=== PATIENT | male | born 1960 | race Caucasian/White ===

== ENCOUNTER 2020-05-17 12:28 | Inpatient (IN) | payer MEDICARE, OTHER ==
[2020-05-17] VITALS (28 sets, daily range): BP systolic 60–178; BP diastolic 11–107
[~2020-05-17] VITALS: Ht 172.7 cm; Wt 84.2 kg
--- NOTE | 2020-05-17 12:32 | Emergency Room Report ---
History of Present Illness General Chief Complaint: Dyspnea/Respdistress Source: Patient Present Illness HPI Disclaimer: Please note that this report is being documented using DRAGON technology. This can lead to erroneous entry secondary to incorrect interpretation by the dictating instrument. HPI: 60-year-old male history of ESRD on hemodialysis MWF, recently treated for pneumonia presents for evaluation of shortness of breath. Patient states he was discharged from [facility] 3 days ago after being treated for pneumonia. He does not know what antibiotics he is taking. Completed dialysis yesterday, full treatment according to patient. Reports rapid breathing, shallow breathing, persistent cough. Denies fever. Denies vomiting or diarrhea or skin rash. PMH: ESRD PSH: Shunts Allergies: Penicillin Social Hx: Reviewed Allergies: Uncoded Allergies: PCN (Allergy, Unknown, 05/17/20) COVID-19 Screening Contact w/high risk pt: No Experienced COVID-19 symptoms?: Yes COVID-19 Testing performed FINANCE SPECIALIST: No Review of Systems All Other Systems: negative except mentioned in HPI Physical Exam Vital Signs Date Time Temp Pulse Resp B/P (MAP) Pulse Ox O2 Delivery O2 Flow Rate FiO2 05/17/20 12:19 97.5 95 24 126/87 (100) 95 Nasal Cannula 4.0 General: Awake and alert, mild respiratory distress HEENT: NC/AT. EOMI. Cardiovascular: RRR. S1 and S2 normal. No murmur appreciated Resp: Tachypnea and increased work of breathing. No cough. No wheezing. No crackles. On 4 L nasal cannula. Abdomen: Abdomen is soft, nondistended. Nontender Skin: Intact. No abrasions, laceration or rash over the exposed skin MSK: Normal tone and bulk. Moving all extremities. No obvious deformity. Neuro: Awake and alert. Mentating appropriately. Procedures Critical Care Time Critical Care Time Total critical care time: Approximately 45 minutes Due to a high probability of clinically significant, life threatening deterioration, the patient required the highest level of preparedness to intervene emergently and I personally spent this critical care time directly and personally managing the patient. This critical care time included obtaining a history, examining the patient, pulse oximetry, ordering and reviewing studies, ordering treatments, evaluating response to treatment and updating management plan as needed, frequent reassessment and discussion with other providers as well as arranging for ultimate disposition. This critical to care time was performed to assess and manage the high probability of life-threatening deterioration that could result in multiorgan failure. This critical care time is separate from the separately billable procedures and treating other patients. Central Line Central Line : Consent: Emergent Central Line Lumen: triple Maximal Sterile Barrier Tech: yes cap, yes mask, yes sterile gown, yes sterile gloves, yes large sterile sheet, yes hand hygiene, yes chlorhexidine prep Central Line Postion: femoral (R) US Guided Line?: Yes Vessel visualized with U/S: Right Femoral Vein Ultrasound Findings: Collapsible Vessel, Vessel Patent, Color flow present, Visualize vessel puncture Complications: none Central Line Post Position: sutured, good blood return Attempts: One Patient Tolerated: Well Complications: None Intubation Intubation : Consent: Verbal Intubation Method: orotracheal Tube Size (cm): 7.5 Medications: Etomidate, Rocuronium Breath Sounds after Intubation: equal Post Intubation Xray: Yes Progress/Xray Impression: Satisfactory intubation Attempts: One Patient Tolerated: Well Complications: None Medical Decision Making Diagnostic Impression: Primary Impression: Respiratory distress Additional Impressions: Pneumonia Hyperkalemia Sepsis ER Course 60-year-old male history of ESRD recently treated for pneumonia presents for evaluation of shortness of breath. Patient is on 4 L nasal cannula increased work of breathing mild respiratory distress. Currently saturating 95%. Differential includes was not limited to persistent pneumonia, fluid overload status, pulmonary effusion, empyema, heart failure, sepsis, COVID-19 infection among others. Patient initially placed on BiPAP for respiratory support however he did not tolerate it well and had decreased mental status with increasing work of breathing. He did agree to mechanical intubation. Patient was intubated by me using glide scope technique on first pass without complication. Receiving broad-spectrum antibiotics for pneumonia. COVID-19 swab returned negative. His labs show elevation in troponin, lactic acid and potassium. Treated with calcium, insulin with dextrose. He will require dialysis. Patient will be admitted to the ICU. Dr. Barragan accepting physician. Laboratory Tests Test 05/17/20 12:30 White Blood Count 20.5 K/UL (4.8-10.8) H Red Blood Count 3.25 M/UL (4.70-6.10) L Hemoglobin 10.5 G/DL (14.2-18.0) L Hematocrit 34.3 % (42.0-52.0) L Mean Corpuscular Volume 106 FL (80-99) H Mean Corpuscular Hemoglobin 32.3 PG (27.0-31.0) H Mean Corpuscular Hemoglobin Concent 30.7 G/DL (32.0-36.0) L Red Cell Distribution Width 21.5 % (11.6-14.8) H Platelet Count 526 K/UL (150-450) H Mean Platelet Volume 8.9 FL (6.5-10.1) Neutrophils (%) (Auto) % (45.0-75.0) Lymphocytes (%) (Auto) % (20.0-45.0) Monocytes (%) (Auto) % (1.0-10.0) Eosinophils (%) (Auto) % (0.0-3.0) Basophils (%) (Auto) % (0.0-2.0) Neutrophils % (Manual) Pending Lymphocytes % (Manual) Pending Platelet Estimate Pending Platelet Morphology Pending Prothrombin Time Pending Prothrombin Time INR Pending Activated Partial Thromboplast Time Pending D-Dimer Pending Sodium Level 131 MMOL/L (136-145) L Potassium Level 6.3 MMOL/L (3.5-5.1) *H Chloride Level 90 MMOL/L (98-107) L Carbon Dioxide Level 17 MMOL/L (21-32) L Anion Gap 24 mmol/L (5-15) H Blood Urea Nitrogen 97 mg/dL (7-18) H Creatinine 14.7 MG/DL (0.55-1.30) H Estimated Glomerular Filtration Rate 3.4 mL/min (>60) Glucose Level 214 MG/DL (74-106) H Lactic Acid Level 8.20 mmol/L (0.4-2.0) H Calcium Level 7.8 MG/DL (8.5-10.1) L Phosphorus Level 11.1 MG/DL (2.5-4.9) H Magnesium Level 3.1 MG/DL (1.8-2.4) H Ferritin Pending Total Bilirubin 3.2 MG/DL (0.2-1.0) H Direct Bilirubin 2.7 MG/DL (0.0-0.3) H Aspartate Amino Transferase (AST) 382 U/L (15-37) H Alanine Aminotransferase (ALT) 275 U/L (12-78) H Alkaline Phosphatase 98 U/L (46-116) Lactate Dehydrogenase 558 U/L (81-234) H Total Creatine Kinase 82 U/L (26-308) Creatine Kinase MB 1.3 NG/ML (0.0-3.6) Creatine Kinase MB Relative Index 1.5 Troponin I 0.093 ng/mL (0.000-0.056) C-Reactive Protein, Quantitative 21.7 mg/dL (0.00-0.90) H Pro-B-Type Natriuretic Peptide 66340 pg/mL (0-125) H Total Protein 9.4 G/DL (6.4-8.2) H Albumin 3.2 G/DL (3.4-5.0) L Globulin 6.2 g/dL Albumin/Globulin Ratio 0.5 (1.0-2.7) L Lipase 425 U/L (73-393) H Microbiology Date/Time Source Procedure Growth Status 05/17/20 12:30 Nasopharynx SARS-CoV-2 RdRp Gene Assay - Final Complete EKG Diagnostic Results Troponin ordered: Yes When was troponin ordered?: May 17, 2020 EKG Time: 12:30 Rate: normal Rhythm: other - Indeterminate ST Segments: no acute changes Other Impression Indeterminate rhythm, possibly junctional. Occasional PVCs. No ST segment neptali vation Rhythm Strip Diag. Results Rhythm Strip Time: 12:30 EP Interpretation: yes Rate: 100 Rhythm: other - PVCs Chest X-Ray Diagnostic Results Chest X-Ray Diagnostic Results : Chest X-Ray Ordered: Yes # of Views/Limited/Complete: 1 View Indication: Shortness of Breath EP Interpretation: Yes Interpretation: other - Severe cardiomegaly, right middle lobe infiltrate, endotracheal tube above the araceli Impression: Other - Satisfactory intubation, right-sided pneumonia, cardiomegaly Electronically Signed by: Electronically signed by Dr. Arik Ryder Last Vital Signs Date Time Temp Pulse Resp B/P (MAP) Pulse Ox O2 Delivery O2 Flow Rate FiO2 05/17/20 12:19 97.5 95 24 126/87 (100) 95 Nasal Cannula 4.0 Disposition: ADMITTED INPATIENT Condition: Critical Arik Ryder MD May 17, 2020 12:32
[2020-05-17] MEDS ORDERED: Nitroglycerin 2% oint pkt TOPIC ONE (12:45)
[2020-05-17 12:53] LABS: HEMATOCRIT 34.3 % (42.0-52.0); HEMOGLOBIN 10.5 G/DL (14.2-18.0); MEAN CORPUSCULAR VOLUME 106 FL (80-99); PLATELET COUNT 526 K/UL (150-450); RED BLOOD COUNT 3.25 M/UL (4.70-6.10); RED CELL DISTRIBUTION WIDTH 21.5 % (11.6-14.8); WHITE BLOOD COUNT 20.5 K/UL (4.8-10.8)
[2020-05-17] MEDS ORDERED: Cefepime HCl 1 GM in D5W 55 ML IVPB ONE (13:00)
[2020-05-17] MEDS ORDERED: Vancomycin 1 GM in NS 275 ML IVPB ONE (13:00)
[2020-05-17 13:23] LABS: ALBUMIN 3.2 G/DL (3.4-5.0); ALBUMIN/GLOBULIN RATIO 0.5 (1.0-2.7); BILIRUBIN,TOTAL 3.2 MG/DL (0.2-1.0); CALCIUM 7.8 MG/DL (8.5-10.1); CKMB 1.3 NG/ML (0.0-3.6); CREATININE 14.7 MG/DL (0.55-1.30); PHOSPHORUS 11.1 MG/DL (2.5-4.9)
[2020-05-17 13:26] LABS: POTASSIUM 6.3 MMOL/L (3.5-5.1)
[2020-05-17] MEDS ORDERED: Levophed 4mg/4mL Inj IV ONE ×2 (13:28→13:30)
[2020-05-17 13:29] LABS: BILIRUBIN,DIRECT 2.7 MG/DL (0.0-0.3)
[2020-05-17] MEDS ORDERED: Calcium Gluconate 1gm/10ml vial IVP ONE (13:30)
[2020-05-17] MEDS ORDERED: Sodium Bicarbonate 50ml Carp IV ONE (13:30)
[2020-05-17] MEDS ORDERED: Insulin Human Regular 100units/ml 3ml IV ONE (13:30)
[2020-05-17] MEDS ORDERED: Calcium Gluconate 1gm/10ml vial ONE (13:43)
[2020-05-17] MEDS ORDERED: Sodium Bicarbonate 50ml Carp ONE (13:43)
[2020-05-17] MEDS ORDERED: Insulin Human Regular 100units/ml 3ml ONE (13:47)
--- NOTE | 2020-05-17 14:19 | Diagnostic Imaging Report ---
Indication: Reason For Exam: SOB Technique: Serial AP views of the chest. Comparison: None available Findings: The cardiomediastinal silhouette is enlarged when accounting for projection and technique. There is interstitial edema.. Streaky perihilar airspace opacities are noted. No pneumothorax. No large pleural effusion. Interval placement of endotracheal tube, in appropriate position. IMPRESSION: 1. Interstitial edema with streaky perihilar airspace opacities which could represent combination of atelectasis and edema but pneumonia should be excluded clinically. 2. Interval intubation, with endotracheal tube in appropriate position. 3. Moderate cardiomegaly.
[2020-05-17 14:43] LABS: INR 2.5 (0.9-1.1)
[2020-05-17] MEDS ORDERED: SENSIPAR30 MG ORAL (15:27)
[2020-05-17] MEDS ORDERED: ASPIRIN81 MG ORAL (15:27)
[2020-05-17] MEDS ORDERED: FENOFIBRATE160 MG ORAL (15:27)
[2020-05-17] MEDS ORDERED: COLCHICINE0.6 M1 PO (15:27)
[2020-05-17] MEDS ORDERED: RENVELA2.4 GM ORAL (15:27)
[2020-05-17] MEDS ORDERED: NEPHROVITE1 TAB ORAL (15:27)
[2020-05-17] MEDS ORDERED: MUPIROCIN22 GM TOPIC (15:27)
[2020-05-17] MEDS ORDERED: ATARAX25 MG ORAL (15:27)
[2020-05-17] MEDS ORDERED: ALLOPURINOL100 M1 ORAL (15:27)
[2020-05-17] MEDS ORDERED: VANCOMYCIN1.5 GM/300 IV (15:27)
[2020-05-17] MEDS: Aspirin Baby 81mg ORAL SCH (16:00)
[2020-05-17] MEDS: Norepinephrine Bitartrate 16 MG in Sodium Chloride 484 ML IV SCH ×2 (16:00→16:38)
--- NOTE | 2020-05-17 18:45 | Consultation ---
DATE OF CONSULTATION: 05/17/2020 NEPHROLOGY CONSULTATION CONSULTING PHYSICIAN: Edwin Kate MD REFERRING PHYSICIAN: Humberto Barragan MD REASON FOR CONSULTATION: End-stage renal disease, hyperkalemia. HISTORY OF PRESENT ILLNESS: Patient presented to the emergency room with increasing shortness of breath and is now intubated and sedated. He became hypotensive and is receiving fluids and is on high-dose Levophed. He recently left [facility] with vague records indicating that he had pneumonia MRSA. No further history is available. PHYSICAL EXAMINATION: GENERAL: The patient is in the ICU, sedated, intubated. He was started on dialysis via left arm AV fistula. VITAL SIGNS: Temperature 97.6, pulse 103, respirations 20, blood pressure 67/28. Blood pressure is labile. HEAD, EYES, EARS, NOSE, AND THROAT: Patient is sedated, intubated. Pupils are not reactive at this time. Oral mucosa slightly dry. NECK: No adenopathy. LUNGS: Few rhonchi. HEART: The rhythm is regular and tachycardic. I hear no murmur or rub. ABDOMEN: Soft. Liver and spleen not palpable. There is very mild distention. EXTREMITIES: No edema. There is an AV fistula working well in the left forearm. No evidence of cellulitis. NEUROLOGIC: The patient is sedated. IMPRESSION: 1. End-stage renal disease. 2. Hyperkalemia. 3. Septic shock. 4. History of pneumonia. 5. Lactic acidosis. 6. Troponin elevation. 7. Elevated BNP and likely chronic congestive heart failure. 8. Low serum albumin, likely mild protein-calorie malnutrition. 9. Acute respiratory failure. PLAN: The patient will be dialyzed to control potassium and acidosis. He is being treated with pressors, broad-spectrum antibiotics. Try to get further records. Thank you so much for having me see the patient in consultation. Edwin Kate M.D. DR: JH JOB#: [id number] CC:
[2020-05-17] MEDS ORDERED: Rocuronium Bromide 50mg/5ml Inj IV ONE (19:32)
[2020-05-17] MEDS ORDERED: Etomidate 40mg/20ml Inj IV ONE (19:32)
[2020-05-17] MEDS: Heparin 5000 units/ml inj SUBQ SCH (20:34)
[2020-05-17] MEDS: LORazepam Inj 2mg/ml 1ml IV PRN (21:07)
--- NOTE | 2020-05-17 21:31 | Critical Care Progress Note ---
Assessment/Plan Assessment/Plan acute respiratory failure hypoxemia acidemia renal failure transaminitis leukocytosis anemia possible sepsis tachycardia shock hypotension PLAN pressors as needed care noted IV antibiotics respiratory care Ventilatory management supportive care suction no wean oxygen therapy prognosis critical medications/laboratory data/nursing notes/ICU care reviewed in detail note reviewed and edited care discussed with RN and RT ICU time spent >40 minutes Critical Care - Subjective Interval Events: asked to follow for pulmonary management in ICU on vent acid base reviewed ROS Limited/Unobtainable: Yes Condition: critical Residuals: minimal Critical Care - Objective ET-Tube: 7.5 ET Position: 23 Last 24 Hour Vital Signs Date Time Temp Pulse Resp B/P (MAP) Pulse Ox O2 Delivery O2 Flow Rate FiO2 05/17/20 21:07 118 32 118/83 100 05/17/20 20:00 97.6 112 29 137/107 (117) 100 05/17/20 20:00 100 05/17/20 19:10 199/167 05/17/20 19:05 171/148 05/17/20 19:00 108 22 100 05/17/20 19:00 109 25 130/86 (101) 100 05/17/20 19:00 173/103 05/17/20 19:00 110 28 178/103 (128) 100 05/17/20 18:30 104 21 133/53 (79) 96 05/17/20 18:00 105 23 128/72 (90) 79 05/17/20 18:00 Mechanical Ventilator 05/17/20 18:00 108/84 05/17/20 17:30 97.6 103 20 67/28 (41) 85 05/17/20 17:00 101 22 60/35 (43) 79 05/17/20 17:00 69/21 05/17/20 16:45 99 21 100 05/17/20 16:30 103 24 72/21 (38) 81 05/17/20 16:06 97.7 98 21 76/11 (32) 05/17/20 16:00 74/38 05/17/20 16:00 76/11 05/17/20 16:00 98 20 76/11 (32) 72 05/17/20 16:00 Mechanical Ventilator 05/17/20 15:52 101 20 100 05/17/20 15:45 97 20 73/39 (50) 76 05/17/20 15:38 Mechanical Ventilator 10/20/20 15:38 100 05/17/20 15:30 97 20 81/29 (46) 78 05/17/20 15:15 95 20 78/32 (47) 75 05/17/20 15:00 95 20 65/28 (40) 72 05/17/20 15:00 65/28 05/17/20 14:30 97.6 105 20 71/35 (47) 71 05/17/20 14:30 87/29 05/17/20 14:30 100 05/17/20 14:09 98.0 105 20 132/83 99 Mechanical Ventilator 4.0 100 05/17/20 14:03 97.9 100 20 123/73 100 Mechanical Ventilator 100 05/17/20 13:54 100 05/17/20 13:48 98 14 Mechanical Ventilator 05/17/20 13:42 98 14 100 05/17/20 13:38 89/49 05/17/20 13:38 89/49 05/17/20 12:48 126/87 05/17/20 12:40 95 24 Nasal Cannula 4.0 05/17/20 12:40 97.5 94 24 126/87 95 Nasal Cannula 4.0 05/17/20 12:19 97.5 95 24 126/87 (100) 95 Nasal Cannula 4.0 Labs: Labs Test 05/17/20 12:30 05/17/20 14:05 05/17/20 16:34 05/17/20 17:05 White Blood Count 20.5 K/UL (4.8-10.8) Red Blood Count 3.25 M/UL (4.70-6.10) Hemoglobin 10.5 G/DL (14.2-18.0) Hematocrit 34.3 % (42.0-52.0) Mean Corpuscular Volume 106 FL (80-99) Mean Corpuscular Hemoglobin 32.3 PG (27.0-31.0) Mean Corpuscular Hemoglobin Concent 30.7 G/DL (32.0-36.0) Red Cell Distribution Width 21.5 % (11.6-14.8) Platelet Count 526 K/UL (150-450) Mean Platelet Volume 8.9 FL (6.5-10.1) Neutrophils (%) (Auto) % (45.0-75.0) Lymphocytes (%) (Auto) % (20.0-45.0) Monocytes (%) (Auto) % (1.0-10.0) Eosinophils (%) (Auto) % (0.0-3.0) Basophils (%) (Auto) % (0.0-2.0) Differential Total Cells Counted 100 Neutrophils % (Manual) 81 % (45-75) Lymphocytes % (Manual) 8 % (20-45) Monocytes % (Manual) 9 % (1-10) Eosinophils % (Manual) 0 % (0-3) Basophils % (Manual) 1 % (0-2) Band Neutrophils 1 % (0-8) Nucleated Red Blood Cells 3 /100 WBC Platelet Estimate Increased Platelet Morphology Normal Hypochromasia 1+ Anisocytosis 2+ Sodium Level 131 MMOL/L (136-145) Potassium Level 6.3 MMOL/L (3.5-5.1) Chloride Level 90 MMOL/L (98-107) Carbon Dioxide Level 17 MMOL/L (21-32) Anion Gap 24 mmol/L (5-15) Blood Urea Nitrogen 97 mg/dL (7-18) Creatinine 14.7 MG/DL (0.55-1.30) Estimat Glomerular Filtration Rate 3.4 mL/min (>60) Glucose Level 214 MG/DL (74-106) Lactic Acid Level 8.20 mmol/L (0.4-2.0) 5.50 mmol/L (0.66-2.22) Calcium Level 7.8 MG/DL (8.5-10.1) Phosphorus Level 11.1 MG/DL (2.5-4.9) Magnesium Level 3.1 MG/DL (1.8-2.4) Ferritin 1843 NG/ML (8-388) Total Bilirubin 3.2 MG/DL (0.2-1.0) Direct Bilirubin 2.7 MG/DL (0.0-0.3) Aspartate Amino Transf (AST/SGOT) 382 U/L (15-37) Alanine Aminotransferase (ALT/SGPT) 275 U/L (12-78) Alkaline Phosphatase 98 U/L (46-116) Lactate Dehydrogenase 558 U/L (81-234) Total Creatine Kinase 82 U/L (26-308) Creatine Kinase MB 1.3 NG/ML (0.0-3.6) Creatine Kinase MB Relative Index 1.5 Troponin I 0.093 ng/mL (0.000-0.056) C-Reactive Protein, Quantitative 21.7 mg/dL (0.00-0.90) Pro-B-Type Natriuretic Peptide 24834 pg/mL (0-125) Total Protein 9.4 G/DL (6.4-8.2) Albumin 3.2 G/DL (3.4-5.0) Globulin 6.2 g/dL Albumin/Globulin Ratio 0.5 (1.0-2.7) Lipase 425 U/L (73-393) Prothrombin Time 25.3 SEC (9.30-11.50) Prothromb Time International Ratio 2.5 (0.9-1.1) Activated Partial Thromboplast Time 32 SEC (23-33) D-Dimer 4.63 mg/L FEU (0.00-0.49) Arterial Blood pH 7.399 (7.350-7.450) Arterial Blood Partial Pressure CO2 32.5 mmHg (35.0-45.0) Arterial Blood Partial Pressure O2 239.1 mmHg (75.0-100.0) Arterial Blood HCO3 19.6 mmol/L (22.0-26.0) Arterial Blood Oxygen Saturation 99.2 % (95-100) Arterial Blood Base Excess -4.5 (-2-2) Hood Test N/a Test 05/17/20 20:00 Lactic Acid Level 1.50 mmol/L (0.4-2.0) Objective: WDWN poorly responsive ETT in place reduced breath sounds bilaterally without rhonchi or wheeze [id number] tachy without MRG NABS nontender no CCE obtunded in bed on vent Micro: Microbiology Date/Time Source Procedure Growth Status 05/17/20 12:30 Nasopharynx SARS-CoV-2 RdRp Gene Assay - Final Complete Accucheck: 190 Gregory Jimenez MD May 17, 2020 21:31
[2020-05-18] VITALS (24 sets, daily range): BP systolic 53–118; BP diastolic 14–94
[2020-05-18] MEDS: LORazepam Inj 2mg/ml 1ml IV PRN ×2 (01:11→07:05)
[2020-05-18] MEDS: Norepinephrine Bitartrate 16 MG in Sodium Chloride 484 ML IV SCH (02:39)
--- NOTE | 2020-05-18 03:00 | Consultation ---
DATE OF CONSULTATION: 05/17/2020 CARDIOLOGY CONSULTATION CONSULTING PHYSICIAN: Humberto Barragan M.D. REQUESTING PHYSICIAN: Marcelino Fenton M.D. REASON: Shock. HISTORY OF PRESENT ILLNESS: This 60-year-old male with end-stage renal disease and recent hospitalization for pneumonia, presented to the emergency room with shortness of breath. He has been home 3 days following his last hospitalization and has been on oral antimicrobials. He notes worsening congestion and difficulty breathing and persistent cough. In the emergency room, his condition deteriorated and he required intubation and mechanical ventilation. Subsequently, he became hypotensive. Fluid challenges were initiated. I have been asked to assist with cardiovascular care. The patient had central venous access placed in the emergency room with a triple lumen catheter placed to his right femoral region. PAST MEDICAL HISTORY: End-stage renal disease, AV fistula, hypertension. ALLERGIES: Penicillin. MEDICATIONS: Not available. FAMILY HISTORY: Not known. SOCIAL HISTORY: Not obtainable presently. PHYSICAL EXAMINATION: VITAL SIGNS: Blood pressure 126/87, pulse 95, respirations 24, afebrile on presentation. Blood pressure now is less than 90 systolic. GENERAL: Orally intubated. LUNGS: Bilateral rhonchi. CARDIAC: Regular rhythm and rate. Normal S1, S2. ABDOMEN: Soft, nontender. EXTREMITIES: With trace edema. LABORATORY AND DIAGNOSTIC DATA: EKG reveals junctional rhythm with artifact obscuring exam, occasional PVCs, nonspecific ST-T changes. Chest x-ray with cardiomegaly, right middle lobe infiltrate. COVID swab is negative. Natriuretic peptide is almost 13,000. Magnesium 3.1. Sodium 131, potassium 6.3, bicarb 17, BUN 97, and creatinine 14.7. Troponin elevated at 0.093, with lactic acid 8.2. White count 20.5, hemoglobin 10.5. IMPRESSION: 1. Healthcare-associated pneumonia. 2. Respiratory failure with hypoxia. 3. Sepsis with shock. 4. Acute myocardial ischemia and possible non-ST elevation infarction. 5. Acute on chronic systolic and diastolic congestive heart failure. 6. Lactic acidosis. 7. End-stage renal disease. 8. Condition critical, prognosis guarded. 9. Hyperkalemia with associated conduction system impairments of the heart. PLAN: 1. Emergent hemodialysis with ultrafiltration. 2. Kayexalate at this time until dialysis can be performed. 3. Antimicrobials. 4. Ventilator support. 5. Pressor support. 6. DVT and stress ulcer prophylaxes. Humberto Barragan M.D. DR: TC JOB#: [id number] CC:
[2020-05-18 05:53] LABS: HEMATOCRIT 30.8 % (42.0-52.0); HEMOGLOBIN 9.6 G/DL (14.2-18.0); MEAN CORPUSCULAR VOLUME 107 FL (80-99); PLATELET COUNT 503 K/UL (150-450); RED BLOOD COUNT 2.88 M/UL (4.70-6.10); RED CELL DISTRIBUTION WIDTH 20.8 % (11.6-14.8); WHITE BLOOD COUNT 21.9 K/UL (4.8-10.8)
[2020-05-18] MEDS ORDERED: Heparin Sod 1000 units/ml 10ml IV PRN (06:00)
[2020-05-18 06:20] LABS: ALBUMIN 3.2 G/DL (3.4-5.0); ALBUMIN/GLOBULIN RATIO 0.8 (1.0-2.7); CALCIUM 8.3 MG/DL (8.5-10.1); CREATININE 8.7 MG/DL (0.55-1.30)
[2020-05-18 06:41] LABS: POTASSIUM 4.3 MMOL/L (3.5-5.1)
[2020-05-18 06:45] LABS: BILIRUBIN,DIRECT 3.1 MG/DL (0.0-0.3)
[2020-05-18] MEDS ORDERED: Phenylephrine 100 MG in NS 240 ML IV SCH (08:15)
[2020-05-18] MEDS: Heparin 5000 units/ml inj SUBQ SCH (09:00)
[2020-05-18] MEDS ORDERED: Pantoprazole Inj IVP SCH (09:00)
[2020-05-18] MEDS: Vancomycin 750mg/NS 275ml IVPB SCH ×4 (09:00→09:26)
[2020-05-18] MEDS: Aspirin Baby 81mg ORAL SCH (09:00)
[2020-05-18] MEDS ORDERED: Sodium Bicarbonate 50ml Carp IV SCH (09:15)
--- NOTE | 2020-05-18 09:40 | Cardiology Progress Note ---
Subjective DATE OF SERVICE: May 18, 2020 Condition has deteriorated further; patient remains critical and guarded. Now hypotensive on max dose pressors. Remains orally intubated and mechanicaly ventilated. Labs reviewed ICU logs discussed with the nursing staff. Objective Last 24 Hour Vital Signs Date Time Temp Pulse Resp B/P (MAP) Pulse Ox O2 Delivery O2 Flow Rate FiO2 05/18/20 09:25 108 44/23 05/18/20 09:13 100 05/18/20 09:01 120 30 100 05/18/20 08:00 123 35 71/46 (54) 89 05/18/20 08:00 71/46 05/18/20 08:00 Mechanical Ventilator Mechanical Ventilator Mechanical Ventilator 05/18/20 07:46 100 05/18/20 07:35 113 37 73/51 91 05/18/20 07:30 127 32 106/57 (73) 92 05/18/20 07:05 132 51 110/82 85 05/18/20 07:00 39 98/85 (89) 94 05/18/20 07:00 98/85 05/18/20 06:56 121 31 50 05/18/20 06:30 130 39 05/18/20 06:30 132 48 110/82 (91) 85 05/18/20 06:00 87/52 05/18/20 06:00 107 31 87/52 (64) 99 05/18/20 05:30 109 28 101/58 (72) 98 05/18/20 05:00 104 23 88/46 (60) 96 05/18/20 05:00 101/58 05/18/20 04:37 106 32 50 05/18/20 04:30 105 26 92/54 (67) 98 05/18/20 04:26 50 05/18/20 04:00 Mechanical Ventilator Mechanical Ventilator Mechanical Ventilator 05/18/20 04:00 98.0 105 24 99/69 (79) 100 05/18/20 04:00 99/69 05/18/20 04:00 60 05/18/20 03:30 117 25 100/53 (69) 100 05/18/20 03:17 116 05/18/20 03:00 117 30 97/56 (70) 98 05/18/20 03:00 97/56 05/18/20 02:52 114 32 60 05/18/20 02:51 60 05/18/20 02:39 101/62 05/18/20 02:30 114 22 91/51 (64) 100 05/18/20 02:00 116 25 101/62 (75) 100 05/18/20 02:00 101/62 05/18/20 01:41 116 25 101/62 100 05/18/20 01:30 112 22 91/36 (54) 100 05/18/20 01:11 116 32 104/62 100 05/18/20 01:00 116 25 104/62 (76) 96 05/18/20 01:00 104/62 05/18/20 00:50 114 32 80 05/18/20 00:49 70 05/18/20 00:30 114 31 93/78 (83) 100 05/18/20 00:00 118/55 05/18/20 00:00 98.0 114 28 118/55 (76) 99 05/18/20 00:00 Mechanical Ventilator Mechanical Ventilator Mechanical Ventilator 05/17/20 23:30 109 22 97/70 (79) 100 05/17/20 23:15 108 05/17/20 23:11 88 24 80 05/17/20 23:05 80 05/17/20 23:00 109 23 98/50 (66) 100 05/17/20 23:00 98/50 05/17/20 22:30 109 24 99/49 (66) 100 05/17/20 22:10 106 22 103/55 (71) 98 05/17/20 22:10 103/55 05/17/20 22:00 90 05/17/20 22:00 94/35 05/17/20 22:00 107 23 94/35 (54) 100 05/17/20 21:55 89/35 05/17/20 21:55 109 24 89/35 (53) 99 05/17/20 21:50 110 23 81/45 (57) 100 05/17/20 21:50 81/45 05/17/20 21:45 80/36 05/17/20 21:45 112 25 80/36 (51) 100 05/17/20 21:40 115 25 69/50 (56) 100 05/17/20 21:40 69/50 05/17/20 21:37 115 24 104/57 100 05/17/20 21:30 115 32 90/50 (63) 100 20 21:10 118/83 20 21:07 118 32 118/83 100 20 21:05 106 21 90 05/17/20 21:00 113 36 118/83 (95) 92 05/17/20 20:30 109 29 113/85 (94) 100 05/17/20 20:10 104/69 05/17/20 20:00 Mechanical Ventilator Mechanical Ventilator Mechanical Ventilator 05/17/20 20:00 97.6 112 29 137/107 (117) 100 05/17/20 20:00 100 05/17/20 19:42 110 05/17/20 19:10 199/167 05/17/20 19:05 171/148 05/17/20 19:00 108 22 100 05/17/20 19:00 109 25 130/86 (101) 100 05/17/20 19:00 173/103 05/17/20 19:00 110 28 178/103 (128) 100 05/17/20 18:30 104 21 133/53 (79) 96 05/17/20 18:00 105 23 128/72 (90) 79 05/17/20 18:00 Mechanical Ventilator 05/17/20 18:00 108/84 05/17/20 17:30 97.6 103 20 67/28 (41) 85 05/17/20 17:00 101 22 60/35 (43) 79 05/17/20 17:00 69/21 05/17/20 16:45 99 21 100 05/17/20 16:30 103 24 72/21 (38) 81 05/17/20 16:06 97.7 98 21 76/11 (32) 05/17/20 16:00 74/38 20 16:00 76/11 05/17/20 16:00 98 20 76/11 (32) 72 05/17/20 16:00 Mechanical Ventilator 05/17/20 15:52 101 20 100 05/17/20 15:45 97 20 73/39 (50) 76 20 15:38 Mechanical Ventilator 05/17/20 15:38 100 05/17/20 15:30 97 20 81/29 (46) 78 05/17/20 15:15 95 20 78/32 (47) 75 10/20/20 15:00 95 20 65/28 (40) 72 05/17/20 15:00 65/28 05/17/20 14:30 97.6 105 20 71/35 (47) 71 05/17/20 14:30 87/29 05/17/20 14:30 100 05/17/20 14:09 98.0 105 20 132/83 99 Mechanical Ventilator 4.0 100 05/17/20 14:03 97.9 100 20 123/73 100 Mechanical Ventilator 100 05/17/20 13:54 100 05/17/20 13:48 98 14 Mechanical Ventilator 05/17/20 13:42 98 14 100 05/17/20 13:38 89/49 05/17/20 13:38 89/49 05/17/20 12:48 126/87 05/17/20 12:40 95 24 Nasal Cannula 4.0 05/17/20 12:40 97.5 94 24 126/87 95 Nasal Cannula 4.0 05/17/20 12:19 97.5 95 24 126/87 (100) 95 Nasal Cannula 4.0 HEENT: Orally intubated RHYTHM: ST LUNGS: bilat. rhonchi and rales CARDIAC: regular rhythm, normal S1 and S2, tachycardia ABDOMEN: decreased bowel sounds, distended EXTREMITIES: no calf tenderness, slow capillary refill, trace edema, other - sedated Laboratory Tests Test 05/17/20 12:30 05/17/20 14:05 05/17/20 16:34 05/17/20 17:05 White Blood Count 20.5 K/UL (4.8-10.8) H Red Blood Count 3.25 M/UL (4.70-6.10) L Hemoglobin 10.5 G/DL (14.2-18.0) L Hematocrit 34.3 % (42.0-52.0) L Mean Corpuscular Volume 106 FL (80-99) H Mean Corpuscular Hemoglobin 32.3 PG (27.0-31.0) H Mean Corpuscular Hemoglobin Concent 30.7 G/DL (32.0-36.0) L Red Cell Distribution Width 21.5 % (11.6-14.8) H Platelet Count 526 K/UL (150-450) H Mean Platelet Volume 8.9 FL (6.5-10.1) Neutrophils (%) (Auto) % (45.0-75.0) Lymphocytes (%) (Auto) % (20.0-45.0) Monocytes (%) (Auto) % (1.0-10.0) Eosinophils (%) (Auto) % (0.0-3.0) Basophils (%) (Auto) % (0.0-2.0) Differential Total Cells Counted 100 Neutrophils % (Manual) 81 % (45-75) H Lymphocytes % (Manual) 8 % (20-45) L Monocytes % (Manual) 9 % (1-10) Eosinophils % (Manual) 0 % (0-3) Basophils % (Manual) 1 % (0-2) Band Neutrophils 1 % (0-8) Nucleated Red Blood Cells 3 /100 WBC Platelet Estimate Increased H Platelet Morphology Normal Hypochromasia 1+ Anisocytosis 2+ Sodium Level 131 MMOL/L (136-145) L Potassium Level 6.3 MMOL/L (3.5-5.1) *H Chloride Level 90 MMOL/L (98-107) L Carbon Dioxide Level 17 MMOL/L (21-32) L Anion Gap 24 mmol/L (5-15) H Blood Urea Nitrogen 97 mg/dL (7-18) H Creatinine 14.7 MG/DL (0.55-1.30) H Estimat Glomerular Filtration Rate 3.4 mL/min (>60) Glucose Level 214 MG/DL (74-106) H Lactic Acid Level 8.20 mmol/L (0.4-2.0) H 5.50 mmol/L (0.66-2.22) H Calcium Level 7.8 MG/DL (8.5-10.1) L Phosphorus Level 11.1 MG/DL (2.5-4.9) H Magnesium Level 3.1 MG/DL (1.8-2.4) H Ferritin 1843 NG/ML (8-388) H Total Bilirubin 3.2 MG/DL (0.2-1.0) H Direct Bilirubin 2.7 MG/DL (0.0-0.3) H Aspartate Amino Transf (AST/SGOT) 382 U/L (15-37) H Alanine Aminotransferase (ALT/SGPT) 275 U/L (12-78) H Alkaline Phosphatase 98 U/L (46-116) Lactate Dehydrogenase 558 U/L (81-234) H Total Creatine Kinase 82 U/L (26-308) Creatine Kinase MB 1.3 NG/ML (0.0-3.6) Creatine Kinase MB Relative Index 1.5 Troponin I 0.093 ng/mL (0.000-0.056) C-Reactive Protein, Quantitative 21.7 mg/dL (0.00-0.90) H Pro-B-Type Natriuretic Peptide 78661 pg/mL (0-125) H Total Protein 9.4 G/DL (6.4-8.2) H Albumin 3.2 G/DL (3.4-5.0) L Globulin 6.2 g/dL Albumin/Globulin Ratio 0.5 (1.0-2.7) L Lipase 425 U/L (73-393) H Prothrombin Time 25.3 SEC (9.30-11.50) H Prothromb Time International Ratio 2.5 (0.9-1.1) H Activated Partial Thromboplast Time 32 SEC (23-33) D-Dimer 4.63 mg/L FEU (0.00-0.49) H Arterial Blood pH 7.399 (7.350-7.450) Arterial Blood Partial Pressure CO2 32.5 mmHg (35.0-45.0) L Arterial Blood Partial Pressure O2 239.1 mmHg (75.0-100.0) H Arterial Blood HCO3 19.6 mmol/L (22.0-26.0) L Arterial Blood Oxygen Saturation 99.2 % (95-100) Arterial Blood Base Excess -4.5 (-2-2) L Hood Test N/a Hepatitis B Surface Antigen Pending Test 05/17/20 20:00 05/18/20 04:00 05/18/20 08:20 Lactic Acid Level 1.50 mmol/L (0.4-2.0) White Blood Count 21.9 K/UL (4.8-10.8) H Red Blood Count 2.88 M/UL (4.70-6.10) L Hemoglobin 9.6 G/DL (14.2-18.0) L Hematocrit 30.8 % (42.0-52.0) L Mean Corpuscular Volume 107 FL (80-99) H Mean Corpuscular Hemoglobin 33.1 PG (27.0-31.0) H Mean Corpuscular Hemoglobin Concent 31.0 G/DL (32.0-36.0) L Red Cell Distribution Width 20.8 % (11.6-14.8) H Platelet Count 503 K/UL (150-450) H Mean Platelet Volume 8.2 FL (6.5-10.1) Neutrophils (%) (Auto) % (45.0-75.0) Lymphocytes (%) (Auto) % (20.0-45.0) Monocytes (%) (Auto) % (1.0-10.0) Eosinophils (%) (Auto) % (0.0-3.0) Basophils (%) (Auto) % (0.0-2.0) Differential Total Cells Counted 100 Neutrophils % (Manual) 79 % (45-75) H Lymphocytes % (Manual) 10 % (20-45) L Monocytes % (Manual) 4 % (1-10) Eosinophils % (Manual) 1 % (0-3) Basophils % (Manual) 0 % (0-2) Myelocytes % 1 % (0-0) H Band Neutrophils 5 % (0-8) Nucleated Red Blood Cells 6 /100 WBC Platelet Estimate Increased H Platelet Morphology Normal Polychromasia Hypochromasia 1+ Anisocytosis 2+ Macrocytosis 2+ Sodium Level 140 MMOL/L (136-145) Potassium Level 4.3 MMOL/L (3.5-5.1) Chloride Level 97 MMOL/L (98-107) L Carbon Dioxide Level 21 MMOL/L (21-32) Anion Gap 23 mmol/L (5-15) H Blood Urea Nitrogen 45 mg/dL (7-18) H Creatinine 8.7 MG/DL (0.55-1.30) H Estimat Glomerular Filtration Rate 6.3 mL/min (>60) Glucose Level 122 MG/DL (74-106) H Calcium Level 8.3 MG/DL (8.5-10.1) L Total Bilirubin 4.0 MG/DL (0.2-1.0) H Direct Bilirubin 3.1 MG/DL (0.0-0.3) H Aspartate Amino Transf (AST/SGOT) 419 U/L (15-37) H Alanine Aminotransferase (ALT/SGPT) 249 U/L (12-78) H Alkaline Phosphatase 71 U/L (46-116) Troponin I 0.124 ng/mL (0.000-0.056) Total Protein 7.1 G/DL (6.4-8.2) Albumin 3.2 G/DL (3.4-5.0) L Globulin 3.9 g/dL Albumin/Globulin Ratio 0.8 (1.0-2.7) L Thyroid Stimulating Hormone (TSH) 0.328 uiU/mL (0.358-3.740) Random Vancomycin Level 19.4 ug/mL Arterial Blood pH 7.229 (7.350-7.450) Arterial Blood Partial Pressure CO2 27.0 mmHg (35.0-45.0) L Arterial Blood Partial Pressure O2 64.3 mmHg (75.0-100.0) L Arterial Blood HCO3 11.0 mmol/L (22.0-26.0) *L Arterial Blood Oxygen Saturation 84.2 % (95-100) *L Arterial Blood Base Excess -15.1 (-2-2) *L Hood Test Positive Microbiology Date/Time Source Procedure Growth Status 05/17/20 12:30 Nasopharynx SARS-CoV-2 RdRp Gene Assay - Final Complete Assessment/Plan Assessment/Plan Shock Sepsis Acute myocardial infarction Respiratory failure Respiratory acidosis Lactic acidosis Ac/chr diastolic/systolic CHF ESRD Pressors Fluid challenge Abx HD/UF Vent support Brother present -aware of gravity of condition Humberto Barragan MD May 18, 2020 09:40
[2020-05-18] MEDS ORDERED: Hydrocortisone 100mg Inj IV SCH (10:00)
--- NOTE | 2020-05-18 11:21 | Critical Care Progress Note ---
Assessment/Plan Assessment/Plan acute respiratory failure hypoxemia acidemia renal failure transaminitis leukocytosis anemia possible sepsis tachycardia shock hypotension PLAN pressors as needed care noted IV antibiotics respiratory care Ventilatory management/ adjust RR taper oxygen as able supportive care suction no wean oxygen therapy prognosis critical remains hypotensive medications/laboratory data/nursing notes/ICU care reviewed in detail note reviewed and edited care discussed with RN and RT ICU time spent >40 minutes Critical Care - Subjective Interval Events: hypotensive care noted agitated increased to 100% Condition: critical EKG Rhythm: Sinus Tachycardia I&O: Intake and Output 05/17/20 05/18/20 19:00 07:00 Intake Total 941.875 ml 583.1250 ml Output Total 0 ml 0 ml Balance 941.875 ml 583.1250 ml Intake Oral 0 ml IV Total 941.875 ml 583.1250 ml Output Urine Total 0 ml Hemodialysis UF 0 ml Critical Care - Objective ET-Tube: 7.5 ET Position: 23 Last 24 Hour Vital Signs Date Time Temp Pulse Resp B/P (MAP) Pulse Ox O2 Delivery O2 Flow Rate FiO2 05/18/20 11:00 127 38 100 05/18/20 10:30 117 32 71/25 (40) 74 05/18/20 10:00 114 33 61/37 (45) 79 05/18/20 09:30 108 32 53/32 (39) 93 05/18/20 09:25 108 44/23 05/18/20 09:13 100 05/18/20 09:01 120 30 100 05/18/20 09:00 111 31 68/42 (51) 93 05/18/20 08:30 116 33 57/22 (34) 88 05/18/20 08:00 98.6 123 35 71/46 (54) 89 05/18/20 08:00 121 05/18/20 08:00 71/46 05/18/20 08:00 Mechanical Ventilator Mechanical Ventilator Mechanical Ventilator 05/18/20 07:46 100 05/18/20 07:35 113 37 73/51 91 05/18/20 07:30 127 32 106/57 (73) 92 05/18/20 07:05 132 51 110/82 85 05/18/20 07:00 39 98/85 (89) 94 05/18/20 07:00 98/85 05/18/20 06:56 121 31 50 10/21/20 06:30 130 39 05/18/20 06:30 132 48 110/82 (91) 85 05/18/20 06:00 87/52 05/18/20 06:00 107 31 87/52 (64) 99 05/18/20 05:30 109 28 101/58 (72) 98 05/18/20 05:00 104 23 88/46 (60) 96 05/18/20 05:00 101/58 05/18/20 04:37 106 32 50 05/18/20 04:30 105 26 92/54 (67) 98 05/18/20 04:26 50 05/18/20 04:00 Mechanical Ventilator Mechanical Ventilator Mechanical Ventilator 05/18/20 04:00 98.0 105 24 99/69 (79) 100 05/18/20 04:00 99/69 05/18/20 04:00 60 05/18/20 03:30 117 25 100/53 (69) 100 05/18/20 03:17 116 05/18/20 03:00 117 30 97/56 (70) 98 05/18/20 03:00 97/56 05/18/20 02:52 114 32 60 05/18/20 02:51 60 05/18/20 02:39 101/62 05/18/20 02:30 114 22 91/51 (64) 100 05/18/20 02:00 116 25 101/62 (75) 100 05/18/20 02:00 101/62 05/18/20 01:41 116 25 101/62 100 05/18/20 01:30 112 22 91/36 (54) 100 05/18/20 01:11 116 32 104/62 100 05/18/20 01:00 116 25 104/62 (76) 96 05/18/20 01:00 104/62 05/18/20 00:50 114 32 80 05/18/20 00:49 70 05/18/20 00:30 114 31 93/78 (83) 100 05/18/20 00:00 118/55 05/18/20 00:00 98.0 114 28 118/55 (76) 99 05/18/20 00:00 Mechanical Ventilator Mechanical Ventilator Mechanical Ventilator 05/17/20 23:30 109 22 97/70 (79) 100 05/17/20 23:15 108 05/17/20 23:11 88 24 80 05/17/20 23:05 80 05/17/20 23:00 109 23 98/50 (66) 100 20 23:00 98/50 20 22:30 109 24 99/49 (66) 100 05/17/20 22:10 106 22 103/55 (71) 98 05/17/20 22:10 103/55 05/17/20 22:00 90 05/17/20 22:00 94/35 1020 22:00 107 23 94/35 (54) 100 20 21:55 89/35 20 21:55 109 24 89/35 (53) 99 05/17/20 21:50 110 23 81/45 (57) 100 05/17/20 21:50 81/45 05/17/20 21:45 80/36 20 21:45 112 25 80/36 (51) 100 05/17/20 21:40 115 25 69/50 (56) 100 20 21:40 69/50 05/17/20 21:37 115 24 104/57 100 05/17/20 21:30 115 32 90/50 (63) 100 05/17/20 21:10 118/83 05/17/20 21:07 118 32 118/83 100 05/17/20 21:05 106 21 90 05/17/20 21:00 113 36 118/83 (95) 92 05/17/20 20:30 109 29 113/85 (94) 100 05/17/20 20:10 104/69 20 20:00 Mechanical Ventilator Mechanical Ventilator Mechanical Ventilator 05/17/20 20:00 97.6 112 29 137/107 (117) 100 20 20:00 100 20 19:42 110 20 19:10 199/167 05/17/20 19:05 171/148 05/17/20 19:00 108 22 100 05/17/20 19:00 109 25 130/86 (101) 100 20 19:00 173/103 05/17/20 19:00 110 28 178/103 (128) 100 05/17/20 18:30 104 21 133/53 (79) 96 05/17/20 18:00 105 23 128/72 (90) 79 05/17/20 18:00 Mechanical Ventilator 05/17/20 18:00 108/84 05/17/20 17:30 97.6 103 20 67/28 (41) 85 05/17/20 17:00 101 22 60/35 (43) 79 05/17/20 17:00 69/21 05/17/20 16:45 99 21 100 05/17/20 16:30 103 24 72/21 (38) 81 05/17/20 16:06 97.7 98 21 76/11 (32) 05/17/20 16:00 74/38 05/17/20 16:00 76/11 05/17/20 16:00 98 20 76/11 (32) 72 05/17/20 16:00 Mechanical Ventilator 05/17/20 15:52 101 20 100 05/17/20 15:45 97 20 73/39 (50) 76 05/17/20 15:38 Mechanical Ventilator 05/17/20 15:38 100 05/17/20 15:30 97 20 81/29 (46) 78 05/17/20 15:15 95 20 78/32 (47) 75 05/17/20 15:00 95 20 65/28 (40) 72 05/17/20 15:00 65/28 05/17/20 14:30 97.6 105 20 71/35 (47) 71 05/17/20 14:30 87/29 05/17/20 14:30 100 05/17/20 14:09 98.0 105 20 132/83 99 Mechanical Ventilator 4.0 100 05/17/20 14:03 97.9 100 20 123/73 100 Mechanical Ventilator 100 05/17/20 13:54 100 05/17/20 13:48 98 14 Mechanical Ventilator 05/17/20 13:42 98 14 100 05/17/20 13:38 89/49 05/17/20 13:38 89/49 05/17/20 12:48 126/87 05/17/20 12:40 95 24 Nasal Cannula 4.0 05/17/20 12:40 97.5 94 24 126/87 95 Nasal Cannula 4.0 05/17/20 12:19 97.5 95 24 126/87 (100) 95 Nasal Cannula 4.0 Labs: Labs Test 05/17/20 12:30 05/17/20 14:05 05/17/20 16:34 05/17/20 17:05 White Blood Count 20.5 K/UL (4.8-10.8) Red Blood Count 3.25 M/UL (4.70-6.10) Hemoglobin 10.5 G/DL (14.2-18.0) Hematocrit 34.3 % (42.0-52.0) Mean Corpuscular Volume 106 FL (80-99) Mean Corpuscular Hemoglobin 32.3 PG (27.0-31.0) Mean Corpuscular Hemoglobin Concent 30.7 G/DL (32.0-36.0) Red Cell Distribution Width 21.5 % (11.6-14.8) Platelet Count 526 K/UL (150-450) Mean Platelet Volume 8.9 FL (6.5-10.1) Neutrophils (%) (Auto) % (45.0-75.0) Lymphocytes (%) (Auto) % (20.0-45.0) Monocytes (%) (Auto) % (1.0-10.0) Eosinophils (%) (Auto) % (0.0-3.0) Basophils (%) (Auto) % (0.0-2.0) Differential Total Cells Counted 100 Neutrophils % (Manual) 81 % (45-75) Lymphocytes % (Manual) 8 % (20-45) Monocytes % (Manual) 9 % (1-10) Eosinophils % (Manual) 0 % (0-3) Basophils % (Manual) 1 % (0-2) Band Neutrophils 1 % (0-8) Nucleated Red Blood Cells 3 /100 WBC Platelet Estimate Increased Platelet Morphology Normal Hypochromasia 1+ Anisocytosis 2+ Sodium Level 131 MMOL/L (136-145) Potassium Level 6.3 MMOL/L (3.5-5.1) Chloride Level 90 MMOL/L (98-107) Carbon Dioxide Level 17 MMOL/L (21-32) Anion Gap 24 mmol/L (5-15) Blood Urea Nitrogen 97 mg/dL (7-18) Creatinine 14.7 MG/DL (0.55-1.30) Estimat Glomerular Filtration Rate 3.4 mL/min (>60) Glucose Level 214 MG/DL (74-106) Lactic Acid Level 8.20 mmol/L (0.4-2.0) 5.50 mmol/L (0.66-2.22) Calcium Level 7.8 MG/DL (8.5-10.1) Phosphorus Level 11.1 MG/DL (2.5-4.9) Magnesium Level 3.1 MG/DL (1.8-2.4) Ferritin 1843 NG/ML (8-388) Total Bilirubin 3.2 MG/DL (0.2-1.0) Direct Bilirubin 2.7 MG/DL (0.0-0.3) Aspartate Amino Transf (AST/SGOT) 382 U/L (15-37) Alanine Aminotransferase (ALT/SGPT) 275 U/L (12-78) Alkaline Phosphatase 98 U/L (46-116) Lactate Dehydrogenase 558 U/L (81-234) Total Creatine Kinase 82 U/L (26-308) Creatine Kinase MB 1.3 NG/ML (0.0-3.6) Creatine Kinase MB Relative Index 1.5 Troponin I 0.093 ng/mL (0.000-0.056) C-Reactive Protein, Quantitative 21.7 mg/dL (0.00-0.90) Pro-B-Type Natriuretic Peptide 79283 pg/mL (0-125) Total Protein 9.4 G/DL (6.4-8.2) Albumin 3.2 G/DL (3.4-5.0) Globulin 6.2 g/dL Albumin/Globulin Ratio 0.5 (1.0-2.7) Lipase 425 U/L (73-393) Prothrombin Time 25.3 SEC (9.30-11.50) Prothromb Time International Ratio 2.5 (0.9-1.1) Activated Partial Thromboplast Time 32 SEC (23-33) D-Dimer 4.63 mg/L FEU (0.00-0.49) Arterial Blood pH 7.399 (7.350-7.450) Arterial Blood Partial Pressure CO2 32.5 mmHg (35.0-45.0) Arterial Blood Partial Pressure O2 239.1 mmHg (75.0-100.0) Arterial Blood HCO3 19.6 mmol/L (22.0-26.0) Arterial Blood Oxygen Saturation 99.2 % (95-100) Arterial Blood Base Excess -4.5 (-2-2) Hood Test N/a Hepatitis B Surface Antigen Negative (NEGATIVE) Test 05/17/20 20:00 05/18/20 04:00 05/18/20 08:20 Lactic Acid Level 1.50 mmol/L (0.4-2.0) White Blood Count 21.9 K/UL (4.8-10.8) Red Blood Count 2.88 M/UL (4.70-6.10) Hemoglobin 9.6 G/DL (14.2-18.0) Hematocrit 30.8 % (42.0-52.0) Mean Corpuscular Volume 107 FL (80-99) Mean Corpuscular Hemoglobin 33.1 PG (27.0-31.0) Mean Corpuscular Hemoglobin Concent 31.0 G/DL (32.0-36.0) Red Cell Distribution Width 20.8 % (11.6-14.8) Platelet Count 503 K/UL (150-450) Mean Platelet Volume 8.2 FL (6.5-10.1) Neutrophils (%) (Auto) % (45.0-75.0) Lymphocytes (%) (Auto) % (20.0-45.0) Monocytes (%) (Auto) % (1.0-10.0) Eosinophils (%) (Auto) % (0.0-3.0) Basophils (%) (Auto) % (0.0-2.0) Differential Total Cells Counted 100 Neutrophils % (Manual) 79 % (45-75) Lymphocytes % (Manual) 10 % (20-45) Monocytes % (Manual) 4 % (1-10) Eosinophils % (Manual) 1 % (0-3) Basophils % (Manual) 0 % (0-2) Myelocytes % 1 % (0-0) Band Neutrophils 5 % (0-8) Nucleated Red Blood Cells 6 /100 WBC Platelet Estimate Increased Platelet Morphology Normal Polychromasia Hypochromasia 1+ Anisocytosis 2+ Macrocytosis 2+ Sodium Level 140 MMOL/L (136-145) Potassium Level 4.3 MMOL/L (3.5-5.1) Chloride Level 97 MMOL/L (98-107) Carbon Dioxide Level 21 MMOL/L (21-32) Anion Gap 23 mmol/L (5-15) Blood Urea Nitrogen 45 mg/dL (7-18) Creatinine 8.7 MG/DL (0.55-1.30) Estimat Glomerular Filtration Rate 6.3 mL/min (>60) Glucose Level 122 MG/DL (74-106) Calcium Level 8.3 MG/DL (8.5-10.1) Total Bilirubin 4.0 MG/DL (0.2-1.0) Direct Bilirubin 3.1 MG/DL (0.0-0.3) Aspartate Amino Transf (AST/SGOT) 419 U/L (15-37) Alanine Aminotransferase (ALT/SGPT) 249 U/L (12-78) Alkaline Phosphatase 71 U/L (46-116) Troponin I 0.124 ng/mL (0.000-0.056) Total Protein 7.1 G/DL (6.4-8.2) Albumin 3.2 G/DL (3.4-5.0) Globulin 3.9 g/dL Albumin/Globulin Ratio 0.8 (1.0-2.7) Thyroid Stimulating Hormone (TSH) 0.328 uiU/mL (0.358-3.740) Random Vancomycin Level 19.4 ug/mL Arterial Blood pH 7.229 (7.350-7.450) Arterial Blood Partial Pressure CO2 27.0 mmHg (35.0-45.0) Arterial Blood Partial Pressure O2 64.3 mmHg (75.0-100.0) Arterial Blood HCO3 11.0 mmol/L (22.0-26.0) Arterial Blood Oxygen Saturation 84.2 % (95-100) Arterial Blood Base Excess -15.1 (-2-2) Hood Test Positive Objective: WDWN poorly responsive ETT in place reduced breath sounds bilaterally without rhonchi or wheeze [id number] tachy without MRG NABS nontender no CCE obtunded in bed on vent poorly responsive Micro: Microbiology Date/Time Source Procedure Growth Status 05/17/20 12:30 Nasopharynx SARS-CoV-2 RdRp Gene Assay - Final Complete Accucheck: 190 Gregory Jimenez MD May 18, 2020 11:21
--- NOTE | 2020-05-18 11:45 | History and Physical Report ---
DATE OF ADMISSION: 05/17/2020 CHIEF COMPLAINT: Respiratory failure, septic shock. HISTORY OF PRESENT ILLNESS: The patient is a 60-year-old male. He has a history of diabetes, end-stage renal disease. He is on chronic hemodialysis for the last 7 years. According to the patient's brother, he was recently hospitalized at an outside hospital for pneumonia. He was discharged just several days prior to admission here. According the patient's brother, he was having difficulty sleeping at night, felt progressively weak and short of breath. On evaluation in the emergency room, he was hypoxic and hypotensive. He had x-ray evidence of pneumonia. He has been started on broad-spectrum IV antibiotics and is now admitted for further evaluation and care. While down in the ER, he was tried on BiPAP but failed and was ultimately intubated. He is on max dose Levophed. PAST MEDICAL HISTORY: As above. PAST SURGICAL HISTORY: Includes an AV fistula. CURRENT MEDICATIONS: Reconciled and reviewed. ALLERGIES: Penicillin. FAMILY HISTORY: Noncontributory. SOCIAL HISTORY: There is no known history of tobacco, ethanol, or drugs. REVIEW OF SYSTEMS: From the patient is unobtainable as he is currently intubated. PHYSICAL EXAMINATION: VITAL SIGNS: Temperature 98, pulse 127, respirations 32, blood pressure 106/57. GENERAL: The patient is chronically ill-appearing male, currently orally intubated. HEENT: Head is normocephalic and atraumatic. Oropharynx is orally intubated. NECK: Supple. HEART: Regular rate and rhythm. LUNGS: Significant diminished breath sounds. ABDOMEN: Soft, nontender, nondistended. EXTREMITIES: No clubbing, cyanosis, or edema. LABORATORY DATA: Sodium 131, potassium 6.3, chloride 90, bicarb 17, BUN 97, creatinine was 14. Total bilirubin 3.2, direct bilirubin 2.7, AST 382, ALT was 275. Troponin 0.093. Natriuretic peptide level was 13,000. Chest x-ray showed bilateral infiltrates. ASSESSMENT: This is an unfortunate 60-year-old male with history of diabetes, end-stage renal disease, recent pneumonia admitted with complaints of respiratory failure and septic shock secondary to pneumonia. PLAN: Vent support, IV antibiotics, pressors as needed. Followup pending cultures. Renal, Cardiology, Pulmonary, Infectious Diseases consultations will be obtained. The patient's status is currently critical and guarded. The patient's brother has been updated on his status and his poor prognosis. He requested that the patient be Full Code still. Marcelino Fenton M.D. DR: Shankar JOB#: [id number] CC:
[2020-05-18] MEDS ORDERED: Tubing IV Secondary IV ONE (12:09)
[2020-05-18] MEDS ORDERED: Calcium Chloride 10% 10ml carpuject IVP ONE (12:09)
[2020-05-18] MEDS ORDERED: Sodium Bicarbonate 50ml Carp ONE (12:09)
--- NOTE | 2020-05-18 13:01 | Diagnostic Imaging Report ---
Indication: Shortness of breath Technique: XRAY Chest 1v Comparison: 05/17/2020 Findings: Cardiomediastinal contour is stable. Endotracheal and enteric tubes remain in place. No significant interval change in streaky perihilar airspace opacities and vascular/interstitial prominence. No pleural effusion or pneumothorax. No acute osseous abnormality. IMPRESSION: No significant interval change in the radiographic chest compared to exam one day prior. Endotracheal and enteric tubes remain in place.
--- NOTE | 2020-05-18 13:02 | Diagnostic Imaging Report ---
Indication: Abnormal liver function/elevated LFTs Technique: Multiplanar grayscale and duplex Doppler imaging of the abdomen. Comparison: None Findings: Pancreas is obscured by overlying bowel gas. Liver demonstrates homogenous echotexture. Liver contour is smooth. No focal hepatic mass lesion appreciated sonographically. Right hepatic lobe is normal in size measuring 15.7 cm in length. Imaged hepatic veins are patent. There is cholelithiasis and gallbladder sludge. There is nonspecific gallbladder wall thickening. No pericholecystic fluid identified. No intrahepatic or extra hepatic biliary ductal dilatation. Common bile duct measures 6 mm diameter. Spleen is borderline enlarged measuring 12.5 cm in length. Kidneys are atrophic with increased echogenicity. A 5 cm simple appearing cysts noted in the left kidney. Dominant aorta is obscured by overlying bowel gas. IMPRESSION: Cholelithiasis with gallbladder wall thickening. Sonographic Garcia's sign however was not reported. Possibility of acute cholecystitis not excluded. Consider further evaluation with HIDA scan. Common bile duct normal in caliber. No appreciable intrahepatic biliary ductal dilatation. Renal atrophy and increased parenchymal echogenicity suggesting intrinsic/medical renal disease. Correlate clinically.
--- NOTE | 2020-05-18 13:03 | Diagnostic Imaging Report ---
Indication: Nasogastric intubation Technique: Portable frontal view of the abdomen Comparison: None Findings: Nasogastric tube in the stomach. There is a right transfemoral catheter. Bowel gas pattern is nonobstructive. There are degenerative changes in the spine. Atherosclerotic vascular calcifications are seen. Impression: Satisfactory positioning of nasogastric/enteric tube.
[2020-05-18] MEDS ORDERED: Cefepime HCl 1 GM in D5W 55 ML IVPB SCH (14:00)
--- NOTE | 2020-05-18 14:13 | Emergency Room Report ---
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 Medical Decision Making Diagnostic Impression: Primary Impression: Respiratory distress Additional Impressions: Sepsis Pneumonia Hyperkalemia ER Course Called to patient's bedside intensive care unit for CODE BLUE. Patient intubated for respiratory failure. On my arrival he is receiving high-quality CPR ongoing compressions. Patient received epinephrine, bicarb and calcium is a recently and was on dialysis. His glucose was found critically low and D50 ampules were provided. Code run for over 25 minutes according to ACLS protocol. Patient was asystole for all pulse and rhythm checks. Resuscitative efforts were stopped. Patient was pronounced at 1210. Admitting physician notified. Last Vital Signs Date Time Temp Pulse Resp B/P (MAP) Pulse Ox O2 Delivery O2 Flow Rate FiO2 05/18/20 11:30 99.4 119 29 63/14 (30) 98 05/18/20 11:00 100 05/18/20 10:20 Mechanical Ventilator Mechanical Ventilator Mechanical Ventilator 05/17/20 14:09 4.0 Disposition: ADMITTED INPATIENT Condition: Critical Referrals: NOT CHOSEN IPA/,REFERRING (PCP) Arik Ryder MD May 18, 2020 14:12
--- NOTE | 2020-05-18 15:15 | Consultation ---
DATE OF CONSULTATION: 05/18/2020 INFECTIOUS DISEASES CONSULTATION CONSULTING PHYSICIAN: Dong Rivera MD. REFERRING PHYSICIAN: Marcelino Fenton MD. REASON FOR CONSULTATION: Pneumonia and septic shock. HISTORY OF PRESENT ILLNESS: This is a 60-year-old gentleman with history of renal failure on dialysis who recently had pneumonia who came in with shortness of breath. He was discharged from [facility] 3 days ago. He has now been intubated and admitted to the ICU. An Infectious Diseases consultation has been obtained for antibiotics. PAST MEDICAL HISTORY: 1. History of renal failure. 2. History of pneumonia. SOCIAL HISTORY: Unknown. FAMILY HISTORY: Unknown. REVIEW OF SYSTEMS: Unable to obtain currently. MEDICATIONS: As an inpatient, he is on chlorhexidine gluconate, cefepime, albumin, hydrocortisone, Protonix, phenylephrine, lorazepam, subcutaneous heparin, norepinephrine, IV vancomycin, aspirin. ALLERGIES: Penicillin noted. PHYSICAL EXAMINATION: VITAL SIGNS: Temperature of 98.6, T-max of 98.6, pulse of 127, respiratory rate of 38, blood pressure 71/25, O2 saturation of 74% on FiO2 100% HEENT: The patient is intubated. NECK: Supple. No adenopathy. No JVD. CARDIOVASCULAR: Regular rate and rhythm. No murmurs. LUNGS: Clear to auscultation bilaterally. No crackles. No wheezes. ABDOMEN: Soft and nontender. No organomegaly. EXTREMITIES: No cyanosis, no clubbing, no edema. LABORATORY AND DIAGNOSTIC DATA: White count of 21.9, hemoglobin 9.6, hematocrit 30.8, MCV 107, platelet count of 503, neutrophils of 79%. Sodium 140, potassium 4.3, chloride 97, bicarb 21, BUN 45, creatinine 8.7, glucose 122, calcium 8.3. Total bilirubin 4, direct bilirubin 3.1, AST 419, ALT 249, alkaline phosphatase 71. Troponin 0.124. Total protein 7.1, albumin 3.2. Lipase of 425. Hepatitis B surface antigen is negative. COVID-19 test is negative. Ultrasound abdomen has been done and results are pending. Blood cultures are pending. Chest x-ray showing interstitial edema with streaky perihilar opacities which could represent atelectasis and edema but pneumonia cannot be excluded ASSESSMENT: This is a 60-year-old gentleman with history of renal failure with pneumonia who comes in now and is found to have: 1. Pneumonia. 2. COVID-19 test is negative. 3. Respiratory failure. 4. Leukocytosis. 5. Septic shock. 6. Renal failure. PLAN: 1. Continue IV vancomycin. 2. Discontinue cefepime. 3. We will start the patient on meropenem. 4. We will order sputum for Gram stain and culture. 5. We will follow up cultures and adjust antibiotics accordingly. I would like to thank, Dr. Fenton, for this consultation. Dong Rivera M.D. DR: Genaro JOB#: [id number] CC: Marcelino Fenton M.D.
--- NOTE | 2020-05-18 15:33 | Cardiology Report ---
APPROVED REPORT EKG Measurement Heart [id number] <Conclusion> Accelerated Junctional rhythm with frequent premature ventricular complexes Low voltage QRS Inferior infarct, age undetermined Prolonged QT Abnormal ECG
[2020-05-18] MEDS ORDERED: Meropenem 500 MG in NS 55 ML IVPB SCH (17:00)
[2020-05-18] MEDS ORDERED: Dyna-Hex 2% Top Sol 2oz TOPIC SCH (20:00)
--- NOTE | 2020-05-19 11:02 | Discharge Summary ---
Discharge Summary Discharge Summary _ SUMMARY DATE OF ADMISSION: 05/17/2020 DATE OF EXPIRATION: 05/18/2020 REASON FOR ADMISSION: 60 years old male with past medical history of end-stage renal disease, on hemodialysis, diabetes mellitus, recently treated for pneumonia, presented due to shortness of breath. Patient was discharged from [facility] 3 days ago after being treated for pneumonia. He was not aware of what kind of antibiotic he was on. He completed dialysis the day prior to presentation to ED with a full treatment. Patient reported shallow rapid breathing and persistent dry cough. No chest pain. No fever. No vomiting or diarrhea. No skin rash. Upon evaluation pulse oximetry on 4 L of oxygen via nasal cannula was 95% with respiratory rate of 24. Laboratory work-up revealed significant leukocytosis WBC 20.5, hemoglobin 10.5 , hematocrit 34.3 , platelet count 526. Chemistry revealed sodium 131, potassium 6.3, anion gap 24. BUN 97, creatinine 14.7. Glucose 214. Lactic acid 8.2 , repeated 5.5. Troponin elevated 0.093 , pro BNP 12894. AST 382 ALT 275. COVID-19 in emergency room was negative. Patient initially placed on the BiPAP for respiratory support , but did not tolerate it. He also demonstrated decreased mental status with increased work of breathing. Patient agreed to mechanical intubation. Patient subsequently was orally intubated by emergency room physician. Chest x-ray confirmed proper positioning of endotracheal tube. Patient pancultured, started on empiric antibiotic , received fluids. Hyperkalemia was treated. Central line was placed by emergency room physician since blood pressure started to drop . Patient admitted to ICU for further management. CONSULTANTS: historian research assistant Dr. Barragan pulmonary Dr. Jimenez ID specialist Dr. Rivera procurement intern Dr. Kate [facility] COURSE: Patient admitted to ICU. Patient was on pressor with close monitoring of hemodynamic status to keep mean arterial blood pressure above 65. Patient initially was on Levophed and then required initiation of phenylephrine, both were on the maximum doses. Patient started on broad-spectrum. Ventilator support and pulmonary toilet provided. The next day ABG with 100% FiO2 revealed severe hypoxia with O2 sat of 84% ( on PEEP 5). Patient was followed-up with a chest x-ray. Leukocytosis persisted the next day , and the patient was tachycardic Antibiotic optimized as per ID specialist recommendation. At the time of this dictation , cultures still pending. Second troponin elevated 0.124, telemetry showed sinus tachycardia. Per historian research assistant patient had acute myocardial infarction. Unable to start beta-blockade given low blood pressure . Patient started on antiplatelet therapy with aspirin. DVT and GI prophylaxis provided. . LFT were closely monitored. AST from 382 trended up to 419 an ALT from 275 went down to 249. Abdominal ultrasound ordered. Hepatitis Bx antigen negative. Transaminitis was likely due to shocked liver brought by septic shock. Patient remained in critical condition . Patient brother was informed about gravity of condition, but requested full code. On 05/18 CODE BLUE was called. ACLS protocol initiated. Patient had a critically low glucose , D50 provided. Despite all resuscitative efforts patient remained in asystole. Code lasted over 25 minutes. Patient subsequently pronounced at 12:10 on 05/18. Cause of : cardiopulmonary arrest FINAL DIAGNOSES: s/p cardiopulmonary arrest Sepsis with shock Acute hypoxemic respiratory failure requiring intubation Pneumonia Acute myocardial infarction Leukocytosis End-stage renal disease , on hemodialysis Acute on chronic systolic and diastolic CHF Transaminitis Anemia Diabetes mellitus I have been assigned to dictate discharge summary for this account. I was not involved in the patient's management. Maritza Robledo NP May 19, 2020 11:02
== END 2020-05-18 12:10 | disposition expired | DRG 871 ==
LOC: EDBD 12:28 → EDBEDREQ 12:47 → EDBEDREQSVC 12:47 → EMR 12:54 → ICU 12:58 → EDBEDREQSVC 13:16 → EDBEDREQ 13:16 → ICU 14:43
PROC: 06HM33Z Insertion of Infusion Device into Right Femoral Vein, Percutaneous Approach (ICD-10-PCS; principal; 2020-05-17)
PROC: 5A12012 Performance of Cardiac Output, Single, Manual (ICD-10-PCS; principal; 2020-05-17)
PROC: 5A1935Z Respiratory Ventilation, Less than 24 Consecutive Hours (ICD-10-PCS; principal; 2020-05-17)
DX: A41.9 Sepsis, unspecified organism (principal); R65.21 Severe sepsis with septic shock; J18.9 Pneumonia, unspecified organism; N18.6 End stage renal disease; I21.9 Acute myocardial infarction, unspecified; I50.43 Acute on chronic combined systolic (congestive) and diastolic (congestive) heart failure; J96.01 Acute respiratory failure with hypoxia; I13.2 Hypertensive heart and chronic kidney disease with heart failure and with stage 5 chronic kidney disease, or end stage renal disease; E44.1 Mild protein-calorie malnutrition; I50.9 Heart failure, unspecified; Z88.0 Allergy status to penicillin; E87.5 Hyperkalemia; E11.22 Type 2 diabetes mellitus with diabetic chronic kidney disease; Z99.2 Dependence on renal dialysis; R74.01 Elevation of levels of liver transaminase levels; D64.9 Anemia, unspecified; Y95 Nosocomial condition; Z79.82 Long term (current) use of aspirin; Z68.28 Body mass index [BMI] 28.0-28.9, adult
CPT/HCPCS: 31500; 36415; 71045; 74018; 76700; 80053; 80202; 82248; 82550; 82553; 82728; 82803; 82962; 83605; 83615; 83690; 83735; 83880; 84100; 84443; 84484; 85007; 85025; 85379; 85610; 85730; 86140; 86706; 87040; 87081; 92950; 93005; 94002; 94003; 94664; 96365; 96368; 96375; 99291; J0171; J2370; J7030; U0002